=== PATIENT | female | born 1965 | race African-American/Black ===

== ENCOUNTER 2016-12-20 08:55 | Emergency (ER) | payer SELFPAY ==
[2016-12-20 09:15] VITALS: BP 120/55; PULSE 80; TEMP 98.2; BMI 36.0
--- NOTE | 2016-12-20 10:58 | PDOC ---
History of Present Illness - General Chief Complaint: Pain, Acute Stated Complaint: RT TOE PAIN Time Seen by Provider: 12/20/16 10:34 History Source: Patient Exam Limitations: No Limitations - History of Present Illness Initial Comments: 12/20/16 11:04 Pt. samm 51 y/o female with no PMH who presents to the ED c/o 2-3 weeks of R 1st toe pain. Pt. states that she got a pedicure approximately 3 weeks ago and she noticed a small dark spot near the boarder of her toenail. She then had an ingrown toenail which was removed. Since the toe nail was removed, she states that the boarder of her toenail has been tender to the touch. She states that the toe has crusted over and she is concerned there is an infection. Denies fevers, chill, nausea, vomiting, numbness or tingling or weakness of the toe. Extremity Pain Location - Extremity Pain Location Extremity Pain Locations: right: 1st toe Past History - Travel Traveled outside of the country in the last 30 days: No Close contact w/someone who was outside of country & ill: No - Past Medical History Allergies/Adverse Reactions: Allergies Allergy/AdvReac Type Severity Reaction Status Date / Time No Known Allergies Allergy Verified 12/20/16 09:12 Home Medications: Ambulatory Orders NK [No Known Home Medication] 12/20/16 Asthma: Yes - Immunization History Immunization Up to Date: Yes - Psycho/Social/Smoking Cessation Hx Anxiety: No Suicidal Ideation: No Smoking Status: No Smoking History: Never smoked Have you smoked in the past 12 months: No Number of Cigarettes Smoked Daily: 0 Information on smoking cessation initiated: No Hx Alcohol Use: No Drug/Substance Use Hx: No Substance Use Type: None Review of Systems - Review of Systems Able to Perform ROS?: Yes Is the patient limited Urdu proficient: No Constitutional: No: Chills, Fever, Malaise, Weakness ABD/GI: No: Diarrhea, Nausea, Vomiting Musculoskeletal: No: Joint Pain, Joint Swelling, Muscle Pain Integumentary: Yes: Change in Color, Change in Hair/Nails (crusting near toe boarder. ), Erythema All Other Systems: Reviewed and Negative *Physical Exam - Vital Signs Last Vital Signs Temp Pulse Resp BP Pulse Ox 98.2 F 80 16 120/55 97 12/20/16 09:12 12/20/16 09:12 12/20/16 09:12 12/20/16 09:12 12/20/16 09:12 - Physical Exam Comments: 12/20/16 11:10 GENERAL: [The patient is awake, alert, and fully oriented, in no acute distress. ] HEAD: [Normal with no signs of trauma.] EYES: [Pupils equal, round and reactive to light, extraocular movements intact, sclera anicteric, conjunctiva clear.] EXTREMITIES: [Normal range of motion, no edema.] NEUROLOGICAL: [Normal speech, normal gait.] PSYCH: [Normal mood, normal affect.] SKIN: [ Medial R first toe nail boarder with crusting, open area near the nail bed. No obvious paronychia or drainage from the site. Warm, Dry, normal turgor, no rashes or lesions noted.] Medical Decision Making - Medical Decision Making 12/20/16 11:12 Patient is a 51-year-old female with no past medical history who presents with an open paronychia to the medial right first toe. The paronychia appears open at this time however we will try soaking it to see if there is any residual infection left. We'll give Motrin for pain. Reevaluate. 12/20/16 11:45 The paronychia is openly draining at this time after soaking. The wound is open. There is nothing to I&D at this time. We'll discharge home at this time. Patient understands that she needs to soak the toe at least 4 times a day and will give referral for podiatry. *DC/Admit/Observation/Transfer Diagnosis at time of Disposition: Paronychia - Discharge Dispostion Disposition: HOME Condition at time of disposition: Good Admit: No - Referrals Referrals: Brett Michael [Primary Care Provider] - Wiliam Rico MD [Staff Physician] - - Patient Instructions Printed Discharge Instructions: DI for Paronychia Additional Instructions: You have a paronychia, or infection of the nailbed. Your paronychia is healing and open. It is important that she soak your toe at least 4 times a day with warm water and or Epsom salts to help drain the infection. He may take Motrin as needed for pain, not to exceed 3000 mg a day. Take this medication with food. Follow-up with podiatry if it is not healing. Return to the emergency department if you develop fevers, chills, worsening pain , nausea or vomiting or have any changes in your symptoms. - Post Discharge Activity Work/School Note: Back to Work
[2016-12-20] MEDS ORDERED: IBUPROFEN 600 MG TABLET (FP) PO ONE ×2 (11:19→11:34)
== END 2016-12-20 11:57 | disposition home or self-care (01) ==
LOC: JERFT 08:55
DX: L03.031 Cellulitis of right toe (principal)
CPT/HCPCS: 99281-25

== ENCOUNTER 2022-04-02 09:37 | Emergency (ER) | payer OTHER ==
[2022-04-02 09:51] VITALS: BP 167/95; PULSE 80; RESP 16; TEMP 98; BMI 36.6
== END 2022-04-02 11:15 | disposition home or self-care (01) ==
LOC: JER 09:37
DX: J01.91 Acute recurrent sinusitis, unspecified (principal)
CPT/HCPCS: 0241U-QW; 99283-25

== ENCOUNTER 2023-11-14 21:20 | Emergency (ER) | payer OTHER ==
[2023-11-14 21:23] VITALS: BP 142/90; PULSE 89; RESP 18; TEMP 98.8; BMI 39.4
[2023-11-14] MEDS ORDERED: ACETAMINOPHEN 325 MG TABLET (FP) ONE (22:23)
[2023-11-14] MEDS ORDERED: KETOROLAC TROMETHAMINE 15 MG/ML VIAL ONE (22:27)
[2023-11-14] MEDS: KETOROLAC TROMETHAMINE 15 MG/ML VIAL IM ONE (22:29)
[2023-11-14] MEDS: ACETAMINOPHEN 500 MG TABLET (FP) PO ONE (22:29)
== END 2023-11-14 22:49 | disposition home or self-care (01) ==
LOC: JERFT 21:20 → JER 21:20 → JERFT 22:49
PROC: 3E0133Z Introduction of Anti-inflammatory into Subcutaneous Tissue, Percutaneous Approach (ICD-10-PCS; principal; 2023-11-14)
DX: M25.562 Pain in left knee (principal); R26.2 Difficulty in walking, not elsewhere classified; X50.1XXA Overexertion from prolonged static or awkward postures, initial encounter
CPT/HCPCS: 73562-TC-LT-FY; 99284-25